=== PATIENT | male | born 1975 | race Caucasian/White ===

== ENCOUNTER → 2017-11-14 11:35 | Emergency (ER) | payer MEDICARE, MEDICAID ==
[~2017-11-14 11:35] MED LIST: HYDROmorphone INJ* 1 MG/ML CARPUJECT SYRINGE IV ONE; Iodixanol* (CONTRAST) 320 MG/ML 100 ML SDV IV ONE; NS 0.9% 1000 ML* 1,000 ML IV ONE; Ondansetron INJ* 2 MG/ML VIAL IV ONE; PROCHLORPERAZINE INJ 5 MG/ML 2 ML VIAL IV PRN; Thiamine IV* 100 MG, Folic Acid IV* 1 MG, Multiple Vitamin IV ADULT* 10 ML in NS 0.9% 1... IV ONE; oxyCODONE/Acetamin 5/325 MG* TAB PO ONE
[2017-11-14 14:09] LABS: ABS Basophils 0 10^3/ul (0-0.2); ABS Eosinophils 0.1 10^3/ul (0-0.6); ABS Lymphocytes 2.8 10^3/ul (1.0-4.8); ABS Monocytes 0.6 10^3/ul (0-0.8); ABS Neutrophils 2.8 10^3/ul (1.5-7.7); ABS Nucleated RBC 0 10^3/ul; Eosinophil % 0.9 % (0-6); Hematocrit 41 % (42-52); Hemoglobin 14.2 g/dl (14.0-18.0); Lymphocyte % 44.7 % (25-47); Mean Corpuscular HGB Conc 35 g/dl (31-36); Mean Corpuscular Hemoglobin 29 pg (27-31); Mean Corpuscular Volume 83 fL (80-94); Mean Platelet Volume 7 um3 (7.4-10.4); Nucleated Red Blood Cells % 0; Platelet Count 146 10^3/ul (150-450); Red Blood Count 4.94 10^6/ul (4.0-5.4); Red Cell Distribution Width 13 % (10.5-15); White Blood Count 6.3 10^3/ul (3.5-10.8)
[2017-11-14 14:23] LABS: EGFR Non-African American 158.3 (>60)
[2017-11-14 15:44] LABS: Urine Appearance Clear; Urine Blood Negative (Negative); Urine Color Yellow; Urine Ketones Negative (Negative); Urine Protein Negative (Negative); Urine Specific Gravity 1.023 (1.010-1.030); Urine Urobilinogen Negative (Negative)
--- NOTE | 2017-11-14 16:06 | RAD ---
INDICATION: LEFT lower quadrant abdominal pain. Post gastric bypass in 1999. Subsequent surgeries for hernias, mesh infections, cholecystectomy, appendectomy. COMPARISON: November 15, 2013 CT. TECHNIQUE: Multidetector CT images were obtained from the lung bases to the ischial tuberosities with 136 mL Visipaque 320 IV and oral contrast. Multiplanar reformation. REPORT: Unremarkable visualized inferior thorax. Post cholecystectomy. Negative for biliary dilatation. Diffuse decreased density of the liver consistent with fatty infiltration. No focal hepatic lesions evident. Partial fatty replacement of the pancreas. No focal pancreatic lesion, duct dilatation, or inflammatory change evident. Unremarkable spleen. Postsurgical change of Erin-en-Y gastric bypass. Mild prominence of the Erin limb measuring up to 3.4 cm diameter without associated mural thickening or obstruction due to distal propagation of enteric contrast. No perienteric inflammatory change evident. Post appendectomy. Unremarkable colon. Negative for ascites, free air, hernias. Unchanged soft tissue density scarring at the supraumbilical midline abdominal wall. Postsurgical change of ventral hernia repair. No recurrent hernia evident. Asymmetric atrophy of the RIGHT rectus abdominis muscle. Normal adrenal glands. Symmetric nephrograms and pyelograms. Small unchanged cortical cyst at the lower pole the RIGHT kidney. No suspicious renal lesions or hydronephrosis. Unremarkable nondilated ureters and urinary bladder. Symmetric seminal vesicles. Normal diameter abdominal aorta and iliac arteries. Physiologic partial distention of the IVC. Negative for suspicious osseous lesions. IMPRESSION: 1. Postsurgical change of Erin-en-Y gastric bypass. Mild prominence of the Erin limb measuring up to 3.4 cm diameter without associated mural thickening or obstruction due to distal propagation of enteric contrast. No perienteric inflammatory change evident. 2. No acute pathologic process of the alimentary tract evident. 3. Negative for obstructive uropathy. 4. Fatty infiltration of the liver. Post cholecystectomy. Negative for biliary dilatation.
[2017-11-14 21:35] VITALS: BP 102/57
--- NOTE | 2017-11-14 21:55 | ED ---
Natasha Aguillon Gabriel, scribed for Bentley Scherer MD on 11/14/17 at 1258 . Abdominal Pain/Male - HPI Summary HPI Summary: This patient is a 42 year old M presenting to [facility] with a chief complaint of ABD pain since yesterday. The patient rates the stabbing pain 10/10 in severity. Patient reports hematemesis and nausea. Patient denies urinary symptoms. Pt hasnt moved bowels in two days. He has had gastric bypass and got MRSA in 1999. Hx of appendectomy and cholecystectomy. - History of Current Complaint Chief Complaint: EDAbdPain Stated Complaint: ABD PAIN,VOMITING BLOOD Time Seen by Provider: 11/14/17 12:36 Hx Obtained From: Patient Onset/Duration: Lasting Days, Still Present Timing: Constant Severity Initially: Severe Severity Currently: Severe Pain Intensity: 10 Pain Scale Used: 0-10 Numeric Location: Diffuse Radiates: No Associated Signs And Symptoms: Positive: Negative - urinary symptoms, Nausea, Vomiting - with blood - Allergies/Home Medications Allergies/Adverse Reactions: Allergies Allergy/AdvReac Type Severity Reaction Status Date / Time aspirin Allergy Hives Verified 11/14/17 11:42 ibuprofen Allergy Hives Verified 11/14/17 11:43 ketorolac [From Toradol] Allergy Hives Verified 11/14/17 11:41 ondansetron Allergy Hives Verified 11/14/17 11:42 [From Zofran (as hydrochloride)] Home Medications: Home Medications Lisinopril TAB* [Prinivil TAB*] 5 mg PO QAM 11/14/17 [History Confirmed 11/14/17 ] carBAMazepine TAB(*) [TEGretol TAB(*)] 200 mg PO BID 11/14/17 [History Confirmed 11/14/17] metFORMIN* [Glucophage 1000 MG TAB *] 1,000 mg PO BID 11/14/17 [History Confirmed 11/14/17] risperiDONE TAB* [RisperDAL*] 2 mg PO DAILY 11/14/17 [History Confirmed 11/14/17 ] PMH/Surg Hx/FS Hx/Imm Hx Endocrine/Hematology History: Reports: Hx Diabetes Cardiovascular History: Denies: Hx Congestive Heart Failure, Hx Hypertension GI History: Reports: Other GI Disorders - Gastric bypass, appendectomy and abdominal hernia surgery History: Denies: Hx Renal Disease, Other Problems/Disorders Sensory History: Reports: Hx Contacts or Glasses - glasses Opthamlomology History: Reports: Hx Contacts or Glasses - glasses Psychiatric History: Reports: Hx Depression, Hx of Violent Episodes Against Others, Other Psychiatric Issues/Disorders - mood swings Denies: Hx Eating Disorder - Surgical History Surgery Procedure, Year, and Place: Gastric bypass 1999, many surgeries since then for subsequent complications such as hernias and mesh infections.Cholecystectomy,appendectomy Infectious Disease History: No Infectious Disease History: Reports: Hx of Known/Suspected MRSA Denies: Traveled Outside the US in Last 30 Days - Family History Known Family History: Positive: Diabetes Negative: Renal Disease - Social History Alcohol Use: Rare Substance Use Type: Reports: None Smoking Status (MU): Light Every Day Tobacco Smoker Review of Systems Positive: Abdominal Pain, Vomiting - with blood , Nausea Positive: no symptoms reported All Other Systems Reviewed And Are Negative: Yes Physical Exam - Summary Physical Exam Summary: Appearance: The patient is well-nourished in no acute distress and in no acute pain. Skin: The skin is warm and dry and skin color reflects adequate perfusion. HEENT: The head is normocephalic and atraumatic. The pupils are equal and reactive. The conjunctivae are clear and without drainage. Nares are patent and without drainage. Mouth reveals moist mucous membranes and the throat is without erythema and exudate. The external ears are intact. The ear canals are patent and without drainage. The tympanic membranes are intact. Neck: the neck is supple with full range of motion and non-tender. There are no carotid bruits. There is no neck vein distension. Respiratory: Chest is non-tender. Lungs are clear to auscultation and breath sounds are symmetrical and equal. Cardiovascular: Heart is regular rate and rhythm. There is no murmur or rub auscultated. There is no peripheral edema and pulses are symmetrical and equal. Abdomen: The abdomen is soft. There are normal bowel sounds heard in all four quadrants and there is no organomegaly palpated. Well healed periumbilical scar , tender diffusely, Musculoskeletal: There is no back tenderness noted. Extremities are non-tender with full range of motion. There is good capillary refill. There is no peripheral edema or calf tenderness elicited. Neurological: Patient is alert and oriented to person, place and time. The patient has symmetrical motor strength in all four extremities. Cranial nerves are grossly intact. Deep tendon reflexes are symmetrical and equal in all four extremities. Psychiatric: The patient has an appropriate affect and does not exhibit any anxiety or depression. Triage Information Reviewed: Yes Vital Signs On Initial Exam: Initial Vitals Temp Pulse Resp BP Pulse Ox 97.2 F 105 16 158/100 97 11/14/17 11:39 11/14/17 11:39 11/14/17 11:39 11/14/17 11:39 11/14/17 11:39 Vital Signs Reviewed: Yes Diagnostics - Vital Signs Vital Signs Temp Pulse Resp BP Pulse Ox 11/14/17 11:39 97.2 F 105 16 158/100 97 - Laboratory Lab Results: Lab Results 11/14/17 11/14/17 11/14/17 Range/Units 14:00 14:00 14:00 WBC 6.3 (3.5-10.8) 10^3/ul RBC 4.94 (4.0-5.4) 10^6/ul Hgb 14.2 (14.0-18.0) g/dl Hct 41 L (42-52) % MCV 83 (80-94) fL MCH 29 (27-31) pg MCHC 35 (31-36) g/dl RDW 13 (10.5-15) % Plt Count 146 L (150-450) 10^3/ul MPV 7 L (7.4-10.4) um3 Neut % (Auto) 44.4 (38-83) % Lymph % (Auto) 44.7 (25-47) % Scott % (Auto) 9.4 H (0-7) % Eos % (Auto) 0.9 (0-6) % Baso % (Auto) 0.6 (0-2) % Absolute Neuts (auto) 2.8 (1.5-7.7) 10^3/ul Absolute Lymphs (auto) 2.8 (1.0-4.8) 10^3/ul Absolute Monos (auto) 0.6 (0-0.8) 10^3/ul Absolute Eos (auto) 0.1 (0-0.6) 10^3/ul Absolute Basos (auto) 0 (0-0.2) 10^3/ul Absolute Nucleated RBC 0 10^3/ul Nucleated RBC % 0 Sodium 128 L (133-145) mmol/L Potassium 4.1 (3.5-5.0) mmol/L Chloride 96 L (101-111) mmol/L Carbon Dioxide 23 (22-32) mmol/L Anion Gap 9 (2-11) mmol/L BUN 8 (6-24) mg/dL Creatinine 0.57 L (0.67-1.17) mg/dL Est GFR ( Amer) 203.6 (>60) Est GFR (Non-Af Amer) 158.3 (>60) BUN/Creatinine Ratio 14.0 (8-20) Glucose 211 H (70-100) mg/dL Lactic Acid 3.1 H* (0.5-2.0) mmol/L Calcium 9.2 (8.6-10.3) mg/dL Total Bilirubin 0.40 (0.2-1.0) mg/dL AST 25 (13-39) U/L ALT 20 (7-52) U/L Alkaline Phosphatase 52 (34-104) U/L C-Reactive Protein 5.58 H (< 5.00) mg/L Total Protein 6.9 (6.4-8.9) g/dL Albumin 3.9 (3.2-5.2) g/dL Globulin 3.0 (2-4) g/dL Albumin/Globulin Ratio 1.3 (1-3) Lipase 31 (11.0-82.0) U/L Urine Color Urine Appearance Urine pH (5-9) Ur Specific [place] (1.010-1.030) Urine Protein (Negative) Urine Ketones (Negative) Urine Blood (Negative) Urine Nitrate (Negative) Urine Bilirubin (Negative) Urine Urobilinogen (Negative) Ur Leukocyte Esterase (Negative) Urine Glucose (Negative) 11/14/17 Range/Units 15:35 WBC (3.5-10.8) 10^3/ul RBC (4.0-5.4) 10^6/ul Hgb (14.0-18.0) g/dl Hct (42-52) % MCV (80-94) fL MCH (27-31) pg MCHC (31-36) g/dl RDW (10.5-15) % Plt Count (150-450) 10^3/ul MPV (7.4-10.4) um3 Neut % (Auto) (38-83) % Lymph % (Auto) (25-47) % Scott % (Auto) (0-7) % Eos % (Auto) (0-6) % Baso % (Auto) (0-2) % Absolute Neuts (auto) (1.5-7.7) 10^3/ul Absolute Lymphs (auto) (1.0-4.8) 10^3/ul Absolute Monos (auto) (0-0.8) 10^3/ul Absolute Eos (auto) (0-0.6) 10^3/ul Absolute Basos (auto) (0-0.2) 10^3/ul Absolute Nucleated RBC 10^3/ul Nucleated RBC % Sodium (133-145) mmol/L Potassium (3.5-5.0) mmol/L Chloride (101-111) mmol/L Carbon Dioxide (22-32) mmol/L Anion Gap (2-11) mmol/L BUN (6-24) mg/dL Creatinine (0.67-1.17) mg/dL Est GFR ( Amer) (>60) Est GFR (Non-Af Amer) (>60) BUN/Creatinine Ratio (8-20) Glucose (70-100) mg/dL Lactic Acid (0.5-2.0) mmol/L Calcium (8.6-10.3) mg/dL Total Bilirubin (0.2-1.0) mg/dL AST (13-39) U/L ALT (7-52) U/L Alkaline Phosphatase (34-104) U/L C-Reactive Protein (< 5.00) mg/L Total Protein (6.4-8.9) g/dL Albumin (3.2-5.2) g/dL Globulin (2-4) g/dL Albumin/Globulin Ratio (1-3) Lipase (11.0-82.0) U/L Urine Color Yellow Urine Appearance Clear Urine pH 5.0 (5-9) Ur Specific [place] 1.023 (1.010-1.030) Urine Protein Negative (Negative) Urine Ketones Negative (Negative) Urine Blood Negative (Negative) Urine Nitrate Negative (Negative) Urine Bilirubin Negative (Negative) Urine Urobilinogen Negative (Negative) Ur Leukocyte Esterase Negative (Negative) Urine Glucose 3+(>=500 mg/dl) H (Negative) Result Diagrams: 11/14/17 14:00 11/14/17 14:00 Lab Statement: Any lab studies that have been ordered have been reviewed, and results considered in the medical decision making process. - CT CT ABD/Pelvis CT Interpretation Completed By: Radiologist - 1. Postsurgical change of Erin-en- Y gastric bypass. Mild prominence of the Erin limb measuring up to 3.4 cm diameter without associated mural thickening or obstruction due to distal propagation of enteric contrast. No perienteric inflammatory change evident. 2. No acute pathologic process of the alimentary tract evident. 3. Negative for obstructive uropathy. 4. Fatty infiltration of the liver. Post cholecystectomy. Negative for biliary dilatation. ED physician has reviewed this radiology report. Abdominal Pain Fem Course/Dx - Course Course Of Treatment: Mr. Camacho presented with upper abdominal pain he has had on and off for 5-6 years. He had a gastric bypass in 1999 at [facility]. His W/U was WNL here including CT. Dr. Carrero came in and evaluated him and he was D /C'd to F/U with his PMD. - Diagnoses Provider Diagnoses: Abdominal pain - Provider Notifications Discussed Care Of Patient With: Avi Carrero Time Discussed With Above Provider: 20:37 Instructed by Provider To: Other - He reviewed the CT and agrees that there are no acute changes Discharge - Discharge Plan Condition: Stable Disposition: HOME Prescriptions: oxyCODONE/Acetamin 5/325 MG* [Percocet 5/325 TAB*] 1 tab PO Q6H PRN #20 tab MDD 4 PRN Reason: Pain Patient Education Materials: Oxycodone/Acetaminophen (By mouth), Acute Abdominal Pain (ED) Referrals: No Primary Care Phys,NOPCP [Primary Care Provider] - [facility] [Outside] Additional Instructions: RETURN TO EMERGENCY DEPARTMENT FOR ANY NEW OR WORSENING SYMPTOMS The documentation as recorded by the Natasha plunkett Gabriel accurately reflects the service I personally performed and the decisions made by me, Bentley Scherer MD.
--- NOTE | 2017-11-15 00:59 | CONS ---
CONSULTATION REPORT: DATE OF CONSULT: 11/14/17 - EMERGENCY DEPT REFERRING PROVIDER: Dr. Abdoul Scherer, Emergency Room. REASON FOR CONSULTATION: Abdominal pain. HISTORY OF PRESENT ILLNESS: Ms. Ammon Camacho is a 42-year-old gentleman who lives [place], [place], who is visiting the [facility] and who presented to the emergency room with 24 hours of abdominal pain. He had some vomiting and little bit of blood this morning and that concerned him. His past surgical history is somewhat complex in that he underwent an open apparent gastric bypass at the [facility] in year 1999. He states that ever since that surgery he has had intermittent problems with abdominal discomfort and also developed a ventral incisional hernia requiring repair with mesh and a subsequent MRSA infection with prolonged recovery. In addition, he has had a gallbladder removed as well as his appendix removed. He states that over the years, he has had intermittent abdominal discomfort that may last 3 to 4 days. He has seen his surgeons back at [facility] and multiple studies had been done and no abnormality was noted. In addition, also of note, he has been here in the emergency room several times and did undergo 3 CAT scans in the year 2013, which showed no acute findings. As far as I can tell, he has not been admitted to the bariatric service or seen the bariatric surgeons as an outpatient here at [facility]. When seen in the emergency room here today, he was afebrile with stable vital signs. He had normal white blood cell count. He had mild elevation of lactic acid of 3, but his other labs including urinalysis were unremarkable. He had a C- reactive protein of 5.58. He underwent a CT scan of the abdomen and pelvis. I did review the study. It shows findings consistent with bariatric surgery, possibly a Erin-en-Y with some mild prominence of the Erin limb, but contrast that went through without evidence of obstruction. Also noted is a collapsed stomach; however, there may be contrast within the stomach raising the question of what exact procedure was done. It should be noted we do not have any of the operative reports from his bariatric surgery. In light of the fact of his abdominal discomfort and his bariatric surgery, surgical consultation was obtained. PAST MEDICAL HISTORY: 1. The patient is mentally challenged. 2. Bipolar disorder. 3. Psychosis/depression. 4. Learning disability. 5. Anxiety. 6. Noninsulin-dependent diabetes. PAST SURGICAL HISTORY: 1. Open gastric bypass. 2. Ventral incisional hernia repair. 3. Cholecystectomy. 4. Appendectomy. MEDICATIONS: Medicines at home included: 1. Risperdal. 2. Glucophage. 3. Tegretol. 4. Lisinopril. 5. Zolpidem. 6. Oxycodone p.r.n. ALLERGIES: ASPIRIN, IBUPROFEN, KETOROLAC and ZOFRAN. SOCIAL HISTORY: He does not smoke or drink. He lives with his mother in [place], [place]. REVIEW OF SYSTEMS: As per above. PHYSICAL EXAMINATION: Vital Signs: Temperature is 97.2, pulse 84, blood pressure 128/72. In general, he is an overweight male, very pleasant, awake, alert, conversive, appears to be in no apparent distress. His lungs were clear to auscultation with normal respiratory effort. Heart with regular rate and rhythm without murmurs, rubs, or gallops. Abdomen is soft and nondistended. He has a wide, but healed incision at the midline without recurrent hernia. He has normoactive bowel sounds throughout. He has some mild tenderness on the left side of his abdomen without rebound, guarding, or peritoneal irritation. There is no distention. IMPRESSION: Chronic abdominal pain in a patient status post apparent gastric bypass in 1999 at [facility]. He has had multiple evaluations for his chronic abdominal discomfort including several visits here to the emergency room in addition to several other hospitals in the area including [place] and [place]. CAT scan here as above. At this point, there does not appear to be any acute findings that require surgical intervention or admission. He would like to be discharged if he tolerates liquids as he will be going home to where he lives tomorrow. I discussed his care with Dr. Ammon Cesar here at [facility] with Bariatric Surgery and he has reviewed the CAT scan and I have discussed his history and physical exam with him and we both feel comfortable that it is appropriate for him to be discharged with appropriate followup with his surgical team at the [facility]. In addition, certainly if would want to be seen here as an outpatient , this could be arranged through the [facility] in the bariatric program for future care. All of the above was discussed with Dr. Abdoul Scherer here in the ER. Thank you very much for this consultation. [id number]/[facility] #: [id number] [facility]
== END | disposition home or self-care (01) ==
LOC: ED 11:35
DX: R10.9 Unspecified abdominal pain (principal); R11.2 Nausea with vomiting, unspecified; F17.210 Nicotine dependence, cigarettes, uncomplicated
CPT/HCPCS: 36415; 74177; 80053; 81003; 83605; 83690; 85025; 86140; 96374; 96375; 99283; J0780; J1170; J3411; Q9967

== ENCOUNTER 2018-08-31 06:34 | Emergency (ER) | payer MEDICARE, MEDICAID ==
[2018-08-31 06:41] VITALS: BP 135/90
[2018-08-31 07:33] LABS: Urine Appearance Clear; Urine Blood Negative (Negative); Urine Color Yellow; Urine Ketones Trace (Negative); Urine Protein Negative (Negative); Urine Specific Gravity 1.037 (1.010-1.030); Urine Urobilinogen Negative (Negative)
--- NOTE | 2018-08-31 13:03 | ED ---
GI/ HPI - HPI Summary HPI Summary: Patient is a 43-year-old male with significant history of bilateral testicle pain radiating to the bilateral lower quadrants of the past several years. 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 He denies any burning or urgency with urination. Denies any discharge. Denies any erythema around the scrotum or the epididymitis. He is able to urinate well and denies any problems with having bowel movements. He states over the past 2 months, he continues to endorse a 5/10 constant pain to the bilateral testicles with radiation. Denies any chance or history of STDs. Denies any history of UTI. - History of Current Complaint Chief Complaint: EDUrogenitalProblems Time Seen by Provider: 08/31/18 06:55 Stated Complaint: TESTICULAR/ABD PAIN Hx Obtained From: Patient Onset/Duration: Started Hours Ago Timing: Constant Severity: Moderate Current Severity: Moderate Pain Intensity: 0 Additional Locations for Males: Testicles Pain Characteristics: Cramping Aggravating Factor(s): Nothing Alleviating Factor(s): Nothing - Allergy/Home Medications Allergies/Adverse Reactions: Allergies Allergy/AdvReac Type Severity Reaction Status Date / Time aspirin Allergy Hives Verified 08/31/18 06:42 ibuprofen Allergy Hives Verified 08/31/18 06:42 ketorolac [From Toradol] Allergy Hives Verified 08/31/18 06:42 ondansetron Allergy Hives Verified 08/31/18 06:42 [From Zofran (as hydrochloride)] PMH/Surg Hx/FS Hx/Imm Hx Previously Healthy: Yes Endocrine/Hematology History: Reports: Hx Diabetes Cardiovascular History: Denies: Hx Congestive Heart Failure, Hx Hypertension GI History: Reports: Other GI Disorders - Gastric bypass, appendectomy and abdominal hernia surgery History: Denies: Hx Renal Disease, Other Problems/Disorders Sensory History: Reports: Hx Contacts or Glasses - glasses Opthamlomology History: Reports: Hx Contacts or Glasses - glasses Psychiatric History: Reports: Hx Depression, Hx of Violent Episodes Against Others, Other Psychiatric Issues/Disorders - mood swings Denies: Hx Eating Disorder - Surgical History Surgery Procedure, Year, and Place: Gastric bypass 1999, many surgeries since then for subsequent complications such as hernias and mesh infections.Cholecystectomy,appendectomy - Immunization History Hx Pertussis Vaccination: No Immunizations Up to Date: Yes Infectious Disease History: Yes Infectious Disease History: Reports: Hx of Known/Suspected MRSA Denies: Traveled Outside the US in Last 30 Days - Social History Occupation: Unemployed Lives: Alone Alcohol Use: Rare Hx Substance Use: No Substance Use Type: Reports: None Hx Tobacco Use: Yes Smoking Status (MU): Light Every Day Tobacco Smoker Review of Systems Constitutional: Negative Negative: Fever, Chills, Fatigue, Skin Diaphoresis Negative: Palpitations, Chest Pain Negative: Shortness Of Breath, Cough Positive: Abdominal Pain - radiation of pain from the bilateral testicles. Negative: Vomiting Genitourinary: Negative Positive: no symptoms reported, see HPI - I Skin: Negative All Other Systems Reviewed And Are Negative: Yes Physical Exam Triage Information Reviewed: Yes Vital Signs On Initial Exam: Initial Vitals Temp Pulse Resp BP Pulse Ox 97.9 F 112 16 135/90 97 08/31/18 06:36 08/31/18 06:36 08/31/18 06:36 08/31/18 06:36 08/31/18 06:36 Vital Signs Reviewed: Yes Appearance: Positive: Well-Appearing, Well-Nourished Skin: Positive: Warm, Skin Color Reflects Adequate Perfusion Head/Face: Positive: Normal Head/Face Inspection Eyes: Positive: EOMI, DARY, Conjunctiva Clear Neck: Positive: Supple, No Lymphadenopathy Respiratory/Lung Sounds: Positive: Clear to Auscultation, Breath Sounds Present Cardiovascular: Positive: RRR, Pulses are Symmetrical in both Upper and Lower Extremities Musculoskeletal: Positive: Normal, Strength/ROM Intact Diagnostics - Vital Signs Vital Signs Temp Pulse Resp BP Pulse Ox 08/31/18 08:15 97.9 F 112 16 135/90 97 08/31/18 06:36 97.9 F 112 16 135/90 97 - Laboratory Lab Results: Lab Results 08/31/18 Range/Units 07:22 Urine Color Yellow Urine Appearance Clear Urine pH 5.0 (5-9) Ur Specific [place] 1.037 H (1.010-1.030) Urine Protein Negative (Negative) Urine Ketones Trace A (Negative) Urine Blood Negative (Negative) Urine Nitrate Negative (Negative) Urine Bilirubin Negative (Negative) Urine Urobilinogen Negative (Negative) Ur Leukocyte Esterase Negative (Negative) Urine Glucose 3+(>=500 mg/dl) A (Negative) Lab Statement: Any lab studies that have been ordered have been reviewed, and results considered in the medical decision making process. GIGU Course/Dx - Course Course Of Treatment: During the course of treatment, the patient is evaluated for bilateral testicular pain. On physical examination, the epididymis and spermatic cord are without tenderness or masses. Positive bilateral cremaster reflex. No abnormal elevation of the bilateral testicles or shortening of the spermatic cord. No scrotal erythema bilaterally. Negative Prehn's sign. No evidence of hydrocele or varicocele on examination. No drainage or discharge from the penis. Patient is afebrile. UA obtained and is negative. He will be given a follow-up to Dr. Denney's office. Patient understands and is okay for discharge at this time. - Diagnoses Provider Diagnoses: Testicle pain Discharge - Sign-Out/Discharge Documenting (check all that apply): Patient Departure - Discharge Plan Condition: Stable Disposition: HOME Referrals: No Primary Care Phys,NOPCP [Primary Care Provider] - Johann Denney MD [Medical Doctor] - - Billing Disposition and Condition Condition: STABLE Disposition: Home
== END 2018-08-31 08:15 | disposition home or self-care (01) ==
LOC: ED 06:34
DX: N50.812 Left testicular pain (principal); N50.811 Right testicular pain; Z98.84 Bariatric surgery status; Z90.49 Acquired absence of other specified parts of digestive tract; Z90.89 Acquired absence of other organs; Z88.6 Allergy status to analgesic agent; Z88.5 Allergy status to narcotic agent; F17.200 Nicotine dependence, unspecified, uncomplicated
CPT/HCPCS: 81003; 99282